=== PATIENT | male | born 1945 | race Caucasian/White ===

== ENCOUNTER → 2020-11-28 | Outpatient (CLI) | payer MEDICARE, OTHER ==
[~2020-11-28] MED LIST: ULTRAM50 MG PO
== END ==
LOC: CT 13:45
DX: R10.30 Lower abdominal pain, unspecified (principal)
CPT/HCPCS: Q9967

== ENCOUNTER → 2021-01-16 | Outpatient (CLI) | payer MEDICARE, OTHER | LOC: CT 10:10 | DX: I25.10 Atherosclerotic heart disease of native coronary artery without angina pectoris (principal) | CPT/HCPCS: 70450; 93880 ==

== ENCOUNTER 2021-03-21 19:21 | Emergency (ER) | payer MEDICARE, OTHER ==
[2021-03-21 20:00] LABS: HEMOGLOBIN 12.4 gm/dl (14.0-17.5); RED BLOOD COUNT 4.68 M/UL (4.20-5.50); WHITE BLOOD COUNT 14.5 K/UL (4.5-11.0)
[2021-03-21 20:20] LABS: BUN/CREATININE RATIO 18 (0-10)
== END 2021-03-22 04:10 | disposition short-term general hospital (02) ==
LOC: ER1 19:21
PROVIDERS: Physician Assistant Medical
DX: R10.2 Pelvic and perineal pain (principal); R10.9 Unspecified abdominal pain; M54.50 Low back pain, unspecified; I11.9 Hypertensive heart disease without heart failure; J44.9 Chronic obstructive pulmonary disease, unspecified; K21.9 Gastro-esophageal reflux disease without esophagitis; I25.10 Atherosclerotic heart disease of native coronary artery without angina pectoris; Z79.899 Other long term (current) drug therapy; Z88.0 Allergy status to penicillin; Z88.8 Allergy status to other drugs, medicaments and biological substances; Z88.1 Allergy status to other antibiotic agents
CPT/HCPCS: 51798; 80053; 81001; 83605; 85025; 87040; 96365; 96375; 96376; 99285; J2270; J2550; Q9967

== ENCOUNTER → 2021-04-15 | Outpatient (CLI) | payer MEDICARE, OTHER ==
[2021-04-15 12:06] LABS: HEMOGLOBIN 11.8 gm/dl (14.0-17.5); RED BLOOD COUNT 4.43 M/UL (4.20-5.50); WHITE BLOOD COUNT 11.6 K/UL (4.5-11.0)
[2021-04-15 12:23] LABS: BUN/CREATININE RATIO 17 (0-10)
== END ==
LOC: LAB 09:58
PROVIDERS: Neurological Surgery
DX: I10 Essential (primary) hypertension (principal); R91.8 Other nonspecific abnormal finding of lung field
CPT/HCPCS: 36415; 71046; 80048; 81001; 85025; 85610; 85730

== ENCOUNTER 2021-04-29 20:41 | Inpatient (IN) | payer MEDICARE, OTHER ==
[~2021-04-29] VITALS: Ht 182.9 cm; Wt 63.0 kg
[2021-04-29 22:29] LABS: HEMOGLOBIN 8.9 gm/dl (14.0-17.5); RED BLOOD COUNT 3.42 M/UL (4.20-5.50); WHITE BLOOD COUNT 15.8 K/UL (4.5-11.0)
[2021-04-30 08:17] LABS: BUN/CREATININE RATIO 19 (0-10)
[2021-04-30] MEDS ORDERED: TRAMADOL HCL50 MG PO (12:06)
[2021-04-30] MEDS ORDERED: DOXYCYCLINE MO100 MG PO (12:07)
[2021-04-30] MEDS ORDERED: FAMOTIDINE40 MG PO (12:07)
[2021-04-30] MEDS ORDERED: GABAPENTIN100 MG PO (12:08)
[2021-04-30] MEDS ORDERED: TAMSULOSIN HCL0.4 MG PO (12:08)
[2021-04-30] MEDS ORDERED: TRANSDERM-SCOP1 EACH TOP (12:08)
[2021-04-30] MEDS ORDERED: ZETIA10 MG PO (12:09)
[2021-04-30] MEDS ORDERED: TRELEGY ELLIPT1 EACH INH (12:09)
[2021-04-30] MEDS ORDERED: ATENOLOL50 MG PO (12:09)
[2021-04-30] MEDS ORDERED: LISINOPRIL20 MG PO (12:10)
[2021-04-30] MEDS ORDERED: PLAVIX75 MG PO (12:10)
[2021-04-30] MEDS ORDERED: LEVOTHYROXINE88 MCG PO (12:10)
[2021-04-30] MEDS ORDERED: PROTONIX40 MG PO (12:11)
[2021-04-30] MEDS ORDERED: ASCORBIC ACID500 MG PO (12:11)
[2021-04-30] MEDS ORDERED: AMLODIPINE BESYL5 MG PO (12:11)
[2021-04-30] MEDS ORDERED: MELATONIN5 M2 PO (12:12)
[2021-04-30] MEDS ORDERED: LORATADINE10 MG PO (12:12)
[2021-04-30] MEDS ORDERED: VITAMIN D3-CAL1 EACH PO (12:14)
[2021-04-30] MEDS ORDERED: MECLIZINE HCL25 MG PO (12:14)
[2021-04-30] MEDS ORDERED: DAILY VALUE1 EACH PO (12:14)
[2021-04-30] MEDS ORDERED: OTEZLA30 MG PO (12:15)
[2021-04-30 13:19] LABS: HEMOGLOBIN 9.1 gm/dl (14.0-17.5); RED BLOOD COUNT 3.5 M/UL (4.20-5.50); WHITE BLOOD COUNT 14.1 K/UL (4.5-11.0)
[2021-05-01 09:19] LABS: HEMOGLOBIN 11.5 gm/dl (14.0-17.5); RED BLOOD COUNT 4.5 M/UL (4.20-5.50); WHITE BLOOD COUNT 10.5 K/UL (4.5-11.0)
[2021-05-01 09:39] LABS: BUN/CREATININE RATIO 20 (0-10)
[2021-05-02 08:13] LABS: % FREE PSA 12.2 % (.); PROSTATE SPECIFIC AG, SERUM 3.2 ng/mL (0.0-4.0); PSA, FREE 0.39 ng/mL
[2021-05-02 09:19] LABS: BUN/CREATININE RATIO 19 (0-10)
--- NOTE | 2021-05-02 16:41 | NUR ---
1605 - PT attempted to get patient up for therapy. Patient became very weak, B/P 86/40, P 38. Dr Cifuentes called, order obtained for Normal Saline Bolus x l liter.
[2021-05-03 07:03] LABS: BUN/CREATININE RATIO 15 (0-10)
[2021-05-03 08:18] LABS: HEMOGLOBIN 7.4 gm/dl (14.0-17.5); RED BLOOD COUNT 3.01 M/UL (4.20-5.50)
--- NOTE | 2021-05-03 20:11 | NUR ---
APPROX. 1900 - Patient's heart rate noted to be tachycardic, 120's-130's. personnel and payroll technician informed this RN of heart rate being 200 at approximately [id number]. MD Caruso notified. Obtained order for EKG stat and Lopressor 5mg IV x1 dose. told RN to notify if heart rate does not decrease after med is administered. After Lopressor is adminstered pt heart rate is down to 100-110. Will continue to monitor.
[2021-05-04 05:35] LABS: BUN/CREATININE RATIO 14 (0-10)
[2021-05-05 06:53] LABS: HEMOGLOBIN 7.2 gm/dl (14.0-17.5); RED BLOOD COUNT 2.85 M/UL (4.20-5.50); WHITE BLOOD COUNT 7.2 K/UL (4.5-11.0)
[2021-05-05 07:22] LABS: BUN/CREATININE RATIO 17 (0-10)
[2021-05-06 07:29] LABS: WHITE BLOOD COUNT 6.8 K/UL (4.5-11.0)
[2021-05-06 07:34] LABS: RED BLOOD COUNT 2.5 M/UL (4.20-5.50)
[2021-05-06 07:37] LABS: HEMOGLOBIN 6.5 gm/dl (14.0-17.5)
[2021-05-06 14:13] LABS: HEMATOCRIT 24.1 % (37.5-51.0)
[2021-05-07 06:54] LABS: HEMOGLOBIN 9.3 gm/dl (14.0-17.5); RED BLOOD COUNT 3.53 M/UL (4.20-5.50); WHITE BLOOD COUNT 9.1 K/UL (4.5-11.0)
[2021-05-07 07:27] LABS: BUN/CREATININE RATIO 23 (0-10)
[2021-05-07 13:11] LABS: A/G RATIO 0.7 (0.7-1.7); ALBUMIN 1.9 g/dL (2.9-4.4); ALPHA-1-GLOBULIN 0.5 g/dL (0.0-0.4); ALPHA-2-GLOBULIN 0.8 g/dL (0.4-1.0); BETA GLOBULIN 0.9 g/dL (0.7-1.3); GAMMA GLOBULIN 0.9 g/dL (0.4-1.8); GLOBULIN, TOTAL 3.1 g/dL (2.2-3.9); IMMUNOGLOBULIN A, QN, SERUM 490 mg/dL (61-437); IMMUNOGLOBULIN G, QN, SERUM 718 mg/dL (603-1613); IMMUNOGLOBULIN M, QN, SERUM 25 mg/dL (15-143); M-SPIKE 0.2 g/dL (Not Observed)
--- NOTE | 2021-05-07 19:13 | NUR ---
Dr. Villavicencio put into a nursing communication note to "keep the pt NPO after midnight if today's scans do not show distant disease. patient will then have wide excision of back lesion tomorrow." It is out of my scope of practice to determine if the patient does not show distant disease. I will keep the pt NPO after midnight and Dr. Villavicencio can determine what next steps for his patient are in the morning.
[2021-05-08 06:07] LABS: HEMOGLOBIN 9.2 gm/dl (14.0-17.5); RED BLOOD COUNT 3.53 M/UL (4.20-5.50); WHITE BLOOD COUNT 11.1 K/UL (4.5-11.0)
[2021-05-08 06:28] LABS: BUN/CREATININE RATIO 22 (0-10)
[2021-05-09 06:42] LABS: HEMOGLOBIN 8.7 gm/dl (14.0-17.5); RED BLOOD COUNT 3.35 M/UL (4.20-5.50); WHITE BLOOD COUNT 9.6 K/UL (4.5-11.0)
[2021-05-09 06:56] LABS: BUN/CREATININE RATIO 20 (0-10)
[2021-05-09] MEDS ORDERED: MORPHINE (11:28)
[2021-05-09] MEDS ORDERED: LORAZEPAM (11:28)
[2021-05-09] MEDS ORDERED: DURAGESIC PATCH (11:28)
== END 2021-05-10 12:05 | DRG 542 ==
LOC: ER1 20:41 → CDU 04-30 01:06 → M/S 04-30 01:06
PROVIDERS: Family Medicine; Internal Medicine; Registered Nurse; ADMIT Internal Medicine Infectious Disease
PROC: 0HB6XZX Excision of Back Skin, External Approach, Diagnostic (ICD-10-PCS; 2021-04-30)
PROC: 30233N1 Transfusion of Nonautologous Red Blood Cells into Peripheral Vein, Percutaneous Approach (ICD-10-PCS; principal; 2021-05-06)
DX: C79.51 Secondary malignant neoplasm of bone (principal); I21.4 Non-ST elevation (NSTEMI) myocardial infarction; J18.9 Pneumonia, unspecified organism; G93.41 Metabolic encephalopathy; E87.1 Hypo-osmolality and hyponatremia; E87.2 Acidosis; E87.3 Alkalosis; D62 Acute posthemorrhagic anemia; Z68.1 Body mass index [BMI] 19.9 or less, adult; Z20.822 Contact with and (suspected) exposure to COVID-19; M51.36 Other intervertebral disc degeneration, lumbar region; R63.4 Abnormal weight loss; I25.10 Atherosclerotic heart disease of native coronary artery without angina pectoris; I10 Essential (primary) hypertension; J44.9 Chronic obstructive pulmonary disease, unspecified; E83.52 Hypercalcemia; D64.9 Anemia, unspecified; E78.5 Hyperlipidemia, unspecified; M54.50 Low back pain, unspecified; G89.29 Other chronic pain; E88.09 Other disorders of plasma-protein metabolism, not elsewhere classified; R31.9 Hematuria, unspecified; N40.1 Benign prostatic hyperplasia with lower urinary tract symptoms; D50.9 Iron deficiency anemia, unspecified; I71.4 Abdominal aortic aneurysm, without rupture; Z88.0 Allergy status to penicillin; Z79.899 Other long term (current) drug therapy; Z95.5 Presence of coronary angioplasty implant and graft; Z98.890 Other specified postprocedural states; Z79.82 Long term (current) use of aspirin; Z87.891 Personal history of nicotine dependence; Z82.49 Family history of ischemic heart disease and other diseases of the circulatory system
CPT/HCPCS: ECHO; 36415; 36430; 36600; 70450; 71045; 71275; 77075; 78452; 80048; 80053; 81001; 82009; 82140; 82330; 82397; 82550; 82553; 82607; 82728; 82747; 82784; 82803; 83540; 83550; 83605; 83735; 83874; 83883; 83921; 83970; 84132; 84153; 84154; 84155; 84165; 84443; 84484; 85018; 85025; 85610; 85730; 86140; 86334; 86850; 86900; 86901; 86920; 87040; 87081; 93005; 93017; 93306; 94640; 94664; 94760; 99285; A9502; J1644; J1650; J1756; J2060; J2185; J2785; J7030; P9016; Q9967; U0002